=== PATIENT | female | born 1965 | race Two or more races ===

== ENCOUNTER → 2017-10-05 | Outpatient (CLI) | payer OTHER ==
[2017-10-05 15:25] LABS: URIC ACID 6.6 mg/dL (2.5-7.5)
[2017-10-05 15:27] LABS: C-REACTIVE PROTEIN < 5.0 mg/L (<10.0)
[2017-10-07 07:04] LABS: CYCLIC CITRUL PEPTIDE IGG/A AB 6 units (0-19)
== END ==
LOC: OD 13:48
PROVIDERS: ATTEND Orthopaedic Surgery
DX: M79.644 Pain in right finger(s) (principal); M79.645 Pain in left finger(s)
CPT/HCPCS: 36415; 84550; 85652; 86038; 86140; 86200; 86430

== ENCOUNTER → 2019-11-27 | Outpatient (CLI) | payer OTHER ==
[2019-11-27 13:05] LABS: ABSOLUTE EOSINOPHILS # (AUTO) 0.1 10^3/uL (0.0-0.6); ABSOLUTE LYMPHOCYTES (AUTO) 2.2 10^3/uL (0.5-4.7); ABSOLUTE MONOCYTES (AUTO) 0.4 10^3/uL (0.1-1.4); ABSOLUTE NEUT (AUTO) 1.7 10^3/uL (1.7-8.2); BASOPHILS % (AUTO) 0.9 % (0-2); EOSINOPHILS % (AUTO) 1.7 % (0-6); HEMATOCRIT 37.7 % (36.0-47.0); HEMOGLOBIN 12.5 g/dL (12.0-15.5); LYMPHOCYTES % (AUTO) 49.9 % (13-45); MEAN CORPUSCULAR HGB CONC 33.2 g/dL (32.0-36.0); MEAN CORPUSCULAR VOLUME 93 fl (80-97); MONOCYTES % (AUTO) 8.9 % (3-13); PLATELET COUNT 429 10^3/uL (150-450); RED BLOOD COUNT 4.05 10^6/uL (3.72-5.28); RED CELL DISTRIBUTION WIDTH 12.1 % (11.5-14.0); SEGMENTED NEUTROPHILS % (AUTO) 38.6 % (42-78); TOTAL CELLS COUNTED % (AUTO) 100 %; WHITE BLOOD COUNT 4.5 10^3/uL (4.0-10.5)
[2019-11-27 13:24] LABS: ALBUMIN 4.1 g/dL (3.5-5.0); ALKALINE PHOSPHATASE 94 U/L (38-126); ANION GAP 6 (5-19); ASPARTATE AMINO TRANSFERASE 26 U/L (14-36); BILIRUBIN,TOTAL 0.6 mg/dL (0.2-1.3); BLOOD UREA NITROGEN 17 mg/dL (7-20); CALCIUM 9.3 mg/dL (8.4-10.2); CARBON DIOXIDE 28 mmol/L (22-30); CHLORIDE 106 mmol/L (98-107); CREATINE KINASE 120 U/L (30-135); GLUCOSE 97 mg/dL (75-110); POTASSIUM 4.5 mmol/L (3.6-5.0); TOTAL PROTEIN 7.4 g/dL (6.3-8.2)
[2019-11-27 13:43] LABS: TROPONIN I < 0.012 ng/mL
--- NOTE | 2019-11-27 14:35 | RADIOLOGY REPORT (SQ) ---
EXAM DESCRIPTION: CHEST PA/LATERAL IMAGES COMPLETED DATE/TIME: 11/27/2019 1:42 pm REASON FOR STUDY: CHEST PAIN COMPARISON: 11/22/2011 EXAM PARAMETERS: NUMBER OF VIEWS: two views TECHNIQUE: Digital Frontal and Lateral radiographic views of the chest acquired. RADIATION DOSE: NA LIMITATIONS: none FINDINGS: LUNGS AND PLEURA: Right apical scarring which is stable. No evidence of pulmonary edema o r pneumonia. No pneumothorax. MEDIASTINUM AND HILAR STRUCTURES: No masses or contour abnormalities. HEART AND VASCULAR STRUCTURES: Heart normal size. No evidence for failure. BONES: No acute findings. HARDWARE: None in the chest. OTHER: No other significant finding. IMPRESSION: NO SIGNIFICANT RADIOGRAPHIC FINDING IN THE CHEST. TECHNICAL DOCUMENTATION: JOB ID: [id number] 2010 [employer]- All Rights Reserved Reading location - IP/workstation name: [email or web address]
== END ==
LOC: OD 11:52
PROVIDERS: ATTEND Physician Assistant
DX: R07.9 Chest pain, unspecified (principal)
CPT/HCPCS: 36415; 71046; 80053; 82550; 82553; 84484; 85025; 85379

== ENCOUNTER → 2019-11-28 | Outpatient (CLI) | payer OTHER | LOC: OD 09:43 | PROVIDERS: ATTEND Physician Assistant | DX: R07.9 Chest pain, unspecified (principal); R79.89 Other specified abnormal findings of blood chemistry ==

== ENCOUNTER → 2019-11-28 | Outpatient (CLI) | payer OTHER ==
--- NOTE | 2019-11-28 11:23 | RADIOLOGY REPORT (SQ) ---
EXAM DESCRIPTION: CTA CHEST IMAGES COMPLETED DATE/TIME: 11/28/2019 10:21 am REASON FOR STUDY: R07.9 CHEST PAIN, UNSPECIFIED, R79.89 R07.9 CHEST PAIN, UNSPECIFIED R79.89 OTHER SPECIFIED ABNORMAL FINDINGS OF BLOOD CHEMISTRY COMPARISON: Chest x-ray dated 11/27/2019 TECHNIQUE: CT scan of the chest performed using helical scanning technique with dynamic intravenous contrast injection. Images reviewed with lung, soft tissue and bone windows. Reconstructed coronal and sagittal MPR images reviewed. Additional 3 dimensional post-processing performed to develop Maximal Intensity Projection images (MS P). All images stored on PACS. All CT scanners at this facility use dose modulation, iterative reconstruction, and/or weight based d osing when appropriate to reduce radiation dose to as low as reasonably achievable (ALARA). [facility]: Dose Right [facility]: CareDose [facility]: Dose Right [facility]: Teradose 4D [facility]: Parkt CONTRAST TYPE AND DOSE: contrast/concentration: Isovue 350.00 mmol/ml; Total Contrast Delivered: 54. 0 ml; Total Saline Delivered: 70.0 ml Contrast bolus optimized for the pulmonary arteries. Not diagnostic for the aorta. RENAL FUNCTION: BUN 17, creatinine 0.62 RADIATION DOSE: CT Rad equipment meets quality standard of care and radiation dose reduction techniq ues were employed. CTDIvol: 10.0 - 15.0 mGy. DLP: 397 mGy-cm. . LIMITATIONS: None. FINDINGS: LUNGS AND PLEURA: There are bilateral lower lobe peripheral alveolar infiltrates. Most li kendall infectious or inflammatory. There is a focal slightly spiculated area in the right upper lobe a ssociated with calcification most likely scar. No effusions. AORTA AND GREAT VESSELS: No aneurysm. Contrast bolus not optimized for the aorta. HEART: No pericardial effusion. No significant coronary artery calcifications. PULMONARY ARTERIES: No emboli visualized in the main pulmonary arteries or the segmental branches. HILAR AND MEDIASTINAL STRUCTURES: Small right hilar nodes are present. These are nonspecific. Most likely reactive. HARDWARE: None in the chest. UPPER ABDOMEN: No significant findings. Limited exam. THYROID AND OTHER SOFT TISSUES: No masses. No adenopathy. BONES: No acute or significant finding. 3D MIPS: Confirm above findings. OTHER: No other significant finding. IMPRESSION: 1. No pulmonary emboli. 2. Commonly reported imaging features of COVID-19 pneumonia are present. Other processes such as i nfluenza pneumonia and organizing pneumonia, as can be seen with drug toxicity and connective tissue disease, can cause a similar imaging pattern. COMMENT: This report was called to TENNILLE YEE PA-C at11:16 on 11/28/2019. Quality ID # [id number]: Final reports with documentation of one or more dose reduction techniques (e.g., Au tomated exposure control, adjustment of the mA and/or kV according to patient size, use of iterative reconstruction technique) TECHNICAL DOCUMENTATION: JOB ID: [id number] 2010 [email or web address]- All Rights Reserved Reading location - IP/workstation name: [email or web address]PORTING [employer]-[facility]-
== END ==
LOC: RAD 09:58
PROVIDERS: ATTEND Physician Assistant
DX: R07.9 Chest pain, unspecified (principal); R79.89 Other specified abnormal findings of blood chemistry
CPT/HCPCS: 71275

== ENCOUNTER 2020-04-25 12:11 | Inpatient (IN) | payer OTHER ==
--- NOTE | 2020-04-25 13:35 | ER Document Report ---
ED Medical Screen (RME) - General Chief Complaint: Chest Pain Stated Complaint: CHEST PAIN Time Seen by Provider: 04/25/20 13:33 Primary Care Provider: TENNILLE YEE PA-C [Primary Care Provider] - Follow up as needed Notes: HPI: 54-year-old female presenting with intermittent midsternal chest pain with some radiation into the left shoulder over the last 2 days. Has shortness of breath with the chest discomfort also has discomfort with taking a deep breath then. Patient reports that she was Covid +2 months ago. Did not have chest discomfort like this at that time PHYSICAL EXAMINATION: Patient does not become dyspneic with speaking. Lung sounds are clear to auscultation. She is mildly tachycardic. EKG does show some repolarization abnormalities I have greeted and performed a rapid initial assessment of this patient. A comprehensive ED assessment and evaluation of the patient, analysis of test results and completion of medical decision making process will be conducted by an additional ED providers. Please note that clinical decision making for this patient was made during the 2019 pandemic of novel coronavirus which caused a significant strain on the healthcare system including at this particular facility. Criteria for admission discharge and level of care decisions as well as treatment decisions have necessarily changed TRAVEL OUTSIDE OF THE [place] IN LAST 30 DAYS: No - Related Data Allergies/Adverse Reactions: No Known Allergies Allergy (Verified 12/05/13 07:20) Past Medical History - Past Medical History Cardiac Medical History: Denies: Hx Coronary Artery Disease, Hx Heart Attack, Hx Hypertension Pulmonary Medical History: Denies: Hx Asthma, Hx Bronchitis, Hx COPD, Hx Pneumonia Neurological Medical History: Denies: Hx Cerebrovascular Accident, Hx Seizures GI Medical History: Reports: Hx Gastroesophageal Reflux Disease Musculoskeltal Medical History: Denies Hx Arthritis Past Surgical History: Denies: Hx Hysterectomy, Hx Pacemaker - Immunizations Hx Diphtheria, Pertussis, Tetanus Vaccination: Yes Physical Exam - Vital signs Vitals: Temp Pulse Resp BP Pulse Ox 98.3 F 88 16 140/53 H 100 04/25/20 12:04/25/20 12:04/25/20 12:04/25/20 12:04/25/20 12:21 Course - Vital Signs Vital signs: Temp Pulse Resp BP Pulse Ox 98.3 F 88 16 140/53 H 100 04/25/20 12:04/25/20 12:21 04/25/20 12:21 04/25/20 12:21 04/25/20 12:21 Doctor's Discharge - Discharge Referrals: TENNILLE YEE PA-C [Primary Care Provider] - Follow up as needed
--- NOTE | 2020-04-25 14:11 | RADIOLOGY REPORT (SQ) ---
EXAM DESCRIPTION: CHEST SINGLE VIEW IMAGES COMPLETED DATE/TIME: 04/25/2020 12:56 pm REASON FOR STUDY: chest pain sob COMPARISON: 11/27/2019 EXAM PARAMETERS: NUMBER OF VIEWS: One view. TECHNIQUE: Single frontal radiographic view of the chest acquired. RADIATION DOSE: NA LIMITATIONS: None. FINDINGS: LUNGS AND PLEURA: No opacities, masses or pneumothorax. No pleural effusion. MEDIASTINUM AND HILAR STRUCTURES: No masses. Contour normal. HEART AND VASCULAR STRUCTURES: Heart normal in size. Normal vasculature. BONES: No acute findings. HARDWARE: None in the chest. OTHER: No other significant finding. IMPRESSION: NO ACUTE RADIOGRAPHIC FINDING IN THE CHEST. TECHNICAL DOCUMENTATION: JOB ID: [id number] 2010 [employer]- All Rights Reserved Reading location - IP/workstation name: [id number]
[2020-04-25 14:19] LABS: ABSOLUTE BASOPHILS # (AUTO) 0.1 10^3/uL (0.0-0.2); ABSOLUTE EOSINOPHILS # (AUTO) 0.1 10^3/uL (0.0-0.6); ABSOLUTE LYMPHOCYTES (AUTO) 2.1 10^3/uL (0.5-4.7); ABSOLUTE MONOCYTES (AUTO) 0.4 10^3/uL (0.1-1.4); ABSOLUTE NEUT (AUTO) 3.4 10^3/uL (1.7-8.2); BASOPHILS % (AUTO) 1.1 % (0-2); EOSINOPHILS % (AUTO) 0.9 % (0-6); HEMATOCRIT 42.9 % (36.0-47.0); HEMOGLOBIN 14.4 g/dL (12.0-15.5); LYMPHOCYTES % (AUTO) 34.7 % (13-45); MEAN CORPUSCULAR HEMOGLOBIN 30.9 pg (27.0-33.4); MEAN CORPUSCULAR HGB CONC 33.6 g/dL (32.0-36.0); MEAN CORPUSCULAR VOLUME 92 fl (80-97); MONOCYTES % (AUTO) 6.1 % (3-13); PLATELET COUNT 306 10^3/uL (150-450); RED BLOOD COUNT 4.66 10^6/uL (3.72-5.28); RED CELL DISTRIBUTION WIDTH 12.5 % (11.5-14.0); SEGMENTED NEUTROPHILS % (AUTO) 57.2 % (42-78); TOTAL CELLS COUNTED % (AUTO) 100 %
[2020-04-25 14:32] LABS: ALBUMIN 4.7 g/dL (3.5-5.0); ALKALINE PHOSPHATASE 89 U/L (38-126); ASPARTATE AMINO TRANSFERASE 55 U/L (14-36); BILIRUBIN,DIRECT 0.1 mg/dL (0.0-0.4); BILIRUBIN,TOTAL 0.6 mg/dL (0.2-1.3); BLOOD UREA NITROGEN 15 mg/dL (7-20); CALCIUM 10.4 mg/dL (8.4-10.2); CARBON DIOXIDE 30 mmol/L (22-30); GLUCOSE 102 mg/dL (75-110); POTASSIUM 4.5 mmol/L (3.6-5.0); TOTAL PROTEIN 7.9 g/dL (6.3-8.2)
[2020-04-25 14:39] LABS: CHLORIDE 104 mmol/L (98-107)
[2020-04-25 14:42] LABS: ANION GAP 4 (5-19)
[2020-04-25 14:48] LABS: INTERNATIONAL RATION (INR) 0.88; PROTHROMBIN TIME 12.2 SEC (11.4-15.4)
[2020-04-25] MEDS ORDERED: ASPIRIN 325 MG TABLET PO ONE (15:06)
--- NOTE | 2020-04-25 15:11 | ER Document Report ---
ED Cardiac - General Chief Complaint: Chest Pain Stated Complaint: CHEST PAIN Time Seen by Provider: 04/25/20 13:33 Primary Care Provider: TENNILLE YEE PA-C [Primary Care Provider] - Follow up as needed Notes: HPI: 54-year-old female presents today stating 2 days of some intermittent substernal pain. Not exertional. No nausea, vomiting, fevers, or diaphoresis. No calf pain or leg swelling. Patient is not on any estrogen therapy. History only of cholesterol. Patient does not smoke. No family history of early heart attacks or strokes. Patient did have some chest discomfort around 2 months ago and was diagnosed with coronavirus. Patient currently has no pain at this time. ROS: See HPI All other review of systems reviewed and otherwise negative Reviewed vital signs and nursing note as charted by RN. PHYSICAL EXAM: CONSTITUTIONAL: Alert and oriented and responds appropriately to questions. Well-appearing; well-nourished HEAD: Normocephalic; atraumatic EYES: PERRL; Conjunctivae clear, sclerae non-icteric ENT: Normal nose; no rhinorrhea; moist mucous membranes; pharynx without lesions noted NECK: Supple without meningismus; non-tender; no cervical lymphadenopathy, no masses CARD: Regular rate and rhythm; no murmurs; symmetric distal pulses RESP: Normal chest excursion without splinting or tachypnea; breath sounds clear and equal bilaterally; no wheezes, no rhonchi, no rales ABD/GI: Normal bowel sounds; non-distended; soft, non-tender; no palpable organomegaly or masses BACK: The back appears normal and is non-tender to palpation EXT: Normal ROM in all joints; non-tender to palpation; no edema SKIN: No acute lesions noted NEURO: CN 2-12 intact; 5/5 bilateral upper and lower extremity strength with sensation intact to light touch PSYCH: The patient's mood and manner are appropriate. Grooming and personal hygiene are appropriate. TRAVEL OUTSIDE OF THE [place] IN LAST 30 DAYS: No - Related Data Allergies/Adverse Reactions: No Known Allergies Allergy (Verified 12/05/13 07:20) Past Medical History - Social History Smoking Status: Unknown if Ever Smoked Family History: Reviewed & Not Pertinent - Past Medical History Cardiac Medical History: Denies: Hx Coronary Artery Disease, Hx Heart Attack, Hx Hypertension Pulmonary Medical History: Denies: Hx Asthma, Hx Bronchitis, Hx COPD, Hx Pneumonia Neurological Medical History: Denies: Hx Cerebrovascular Accident, Hx Seizures GI Medical History: Reports: Hx Gastroesophageal Reflux Disease Musculoskeletal Medical History: Denies Hx Arthritis Past Surgical History: Denies: Hx Hysterectomy, Hx Pacemaker - Immunizations Hx Diphtheria, Pertussis, Tetanus Vaccination: Yes Physical Exam - Vital signs Vitals: Temp Pulse Resp BP Pulse Ox 98.3 F 88 16 140/53 H 100 04/25/20 12:21 04/25/20 12:21 04/25/20 12:21 04/25/20 12:04/25/20 12:21 Course - Re-evaluation Re-evalutation: Given the above history and physical examination we will obtain a cardiac panel, EKG, x-ray, and D-dimer. I do believe dissection to be extremely unlikely. EKG shows a heart of 100, sinus tachycardia, normal axis, right bundle branch block, very minimal ST depression in leads V3 and V4. Slightly depressed in lead II. No old EKG to compare. Patient is currently chest pain-free. 04/25/20 16:15 Labs as recorded. No chest pain currently. No right upper quadrant epigastric pain. X-ray of the chest unremarkable. D-dimer is negative Given the history of cholesterol, patient's age, some radiation to the shoulder, with a slightly abnormal EKG, patient's heart score is a 4. I have spoken to the primary care physician who admit the patient. Patient is currently still chest pain-free. - Vital Signs Vital signs: Temp Pulse Resp BP Pulse Ox 98.3 F 88 18 159/70 H 100 04/25/20 12:21 04/25/20 12:21 04/25/20 15:32 04/25/20 15:31 04/25/20 15:32 - Laboratory Results Result Diagrams: 04/25/20 13:48 04/25/20 13:48 Laboratory Results Interpreted: 04/25/20 13:48 Anion Gap 4 L Calcium 10.4 H AST 55 H ALT 70 H Critical Laboratory Results Reviewed: No Critical Results - Radiology Results Critical Radiology Results Reviewed: No Critical Results Discharge - Discharge Clinical Impression: Abnormal EKG Chest pain Qualifiers: Chest pain type: unspecified Qualified Code(s): R07.9 - Chest pain, unspecified Condition: Fair Disposition: ADMITTED OBSERVATION Admitting Provider: Bal Unit Admitted: Telemetry Referrals: TENNILLE YEE PA-C [Primary Care Provider] - Follow up as needed
[2020-04-25] MEDS ORDERED: ACETAMINOPHEN 325 MG TABLET PO PRN (18:45)
[2020-04-25 20:11] LABS: CREATINE KINASE MB 0.49 ng/mL (<4.55)
[2020-04-25 20:16] LABS: TROPONIN I < 0.012 ng/mL
[2020-04-25] MEDS ORDERED: ACETAMINOPHEN 325 MG TABLET ONE (20:24)
--- NOTE | 2020-04-25 20:32 | RADIOLOGY REPORT (SQ) ---
EXAM DESCRIPTION: Site: CTA CHEST RP: CT CHEST ANGIOGRAPHY WITH IV CONTRAST CLINICAL HISTORY: 54 years Female; chest pain; TECHNIQUE: CT angiogram of the chest using intravenous contrast. MIP reconstructions were performed. All CT scans at this facility use dose modulation, iterative reconstruction, and/or weight based dosing when appropriate to reduce radiation dose to as low as reasonably achievable. COMPARISON: None. FINDINGS: Pulmonary arteries: No filling defects in the central pulmonary arteries. Lungs: The scattered infiltrates seen on prior exam have resolved. There is some residual interstitial scarring in the right lung apex. No acute infiltrates. No pneumothorax or pleural effusion. Mediastinum:No mediastinal mass or adenopathy. Mediastinal vascular structures are unremarkable. Bones:No acute bone findings. IMPRESSION: 1. No CT evidence for pulmonary embolism. 2. No acute pulmonary findings. 3. Mild chronic interstitial fibrosis in the right upper lobe
[2020-04-25] MEDS: FAMOTIDINE 20 MG TABLET PO SCH (22:25)
--- NOTE | 2020-04-25 22:42 | EKG REPORT ---
SEVERITY:- BORDERLINE ECG - SINUS TACHYCARDIA PROBABLE LEFT ATRIAL ABNORMALITY BORDERLINE REPOL ABNORMALITY, DIFFUSE LEADS IRBBB : Confirmed by: Sharyn White 25-Apr-2020 22:41:10
[2020-04-26] MEDS ORDERED: MAG HYDROX/AL HYDROX/SIMETH SUSP 30 ML UDCUP PO PRN (01:31)
[2020-04-26 01:39] LABS: CREATINE KINASE MB 0.64 ng/mL (<4.55); TROPONIN I < 0.012 ng/mL
[2020-04-26 07:00] LABS: HEMATOCRIT 39.2 % (36.0-47.0); HEMOGLOBIN 13.4 g/dL (12.0-15.5); MEAN CORPUSCULAR HEMOGLOBIN 31.8 pg (27.0-33.4); MEAN CORPUSCULAR HGB CONC 34.3 g/dL (32.0-36.0); MEAN CORPUSCULAR VOLUME 93 fl (80-97); PLATELET COUNT 278 10^3/uL (150-450); RED BLOOD COUNT 4.22 10^6/uL (3.72-5.28); RED CELL DISTRIBUTION WIDTH 12.7 % (11.5-14.0); WHITE BLOOD COUNT 6.7 10^3/uL (4.0-10.5)
--- NOTE | 2020-04-26 07:37 | EKG REPORT ---
SEVERITY:- ABNORMAL ECG - SINUS RHYTHM NONSPECIFIC INTRAVENTRICULAR CONDUCTION DELAY LVH : Confirmed by: Sharyn White 26-Apr-2020 07:36:01
[2020-04-26 07:43] LABS: CREATINE KINASE MB 0.44 ng/mL (<4.55)
[2020-04-26 07:45] LABS: ANION GAP 7 (5-19); BLOOD UREA NITROGEN 15 mg/dL (7-20); CALCIUM 9.8 mg/dL (8.4-10.2); CARBON DIOXIDE 27 mmol/L (22-30); CHLORIDE 105 mmol/L (98-107); GLUCOSE 94 mg/dL (75-110); POTASSIUM 4.1 mmol/L (3.6-5.0)
[2020-04-26 07:48] LABS: TROPONIN I < 0.012 ng/mL
[2020-04-26] MEDS ORDERED: INFLUENZA QUAD (6MOS+) 2020-21 VAC 0.5 ML SYR IM ONE (08:00)
[2020-04-26] MEDS ORDERED: NITROGLYCERIN 0.4 MG/TAB 25 TAB/BOTTLE SL PRN (09:39)
[2020-04-26] MEDS ORDERED: ENOXAPARIN SODIUM INJ 40 MG/0.4 ML DISP.SYRIN SUBCUT SCH (10:00)
[2020-04-26] MEDS: FAMOTIDINE 20 MG TABLET PO SCH (11:28)
[2020-04-26 12:23] VITALS: BP 115/61
--- NOTE | 2020-04-26 14:03 | PDOC H&P ---
History of Present Illness Admission Date/PCP: 04/25/20 18:06 TENNILLE YEE PA-C Patient complains of: Chest pain History of Present Illness: WESLEY GIBBS is a 54 year old female Is a 54-year-old female with no other medical problems with a history of the latent tuberculosis in the [facility] basically have a Covid 2 months back Patient was treated with outpatientsAnd doing well Patient CT scan was done at the time pursuing the Covid pneumonia Patient's other than that no other complaints came today's because of the intermittent chest pain no shortness of breath and emergency department patient's chest x-ray blood work D-dimer all negative Repeat the CT angiogram no PE and Covid pneumonia is pretty much all resolved some Fibrosis Patient's cardiac enzymes EKG everything was negative Patient seen by the cardiology Dr. ENGLAND suggest follow outpatient Past Medical History Cardiac Medical History: Denies: Coronary Artery Disease, Myocardial Infarction, Hypertension Pulmonary Medical History: Denies: Asthma, Bronchitis, Chronic Obstructive Pulmonary Disease (COPD), Pneumonia Neurological Medical History: Denies: Seizures GI Medical History: Reports: Gastroesophageal Reflux Disease Musculoskeltal Medical History: Denies: Arthritis Psychiatric Medical History: Denies: Depression Hematology: Denies: Anemia Past Surgical History Past Surgical History: Denies: Hysterectomy, Pacemaker Social History Information Source: Patient Smoking Status: Never Smoker Electronic Cigarette use?: No Frequency of Alcohol Use: None Hx Recreational Drug Use: No Drugs: None Hx Prescription Drug Abuse: No Family History Family History: Reviewed & Not Pertinent Parental Family History Reviewed: Yes Children Family History Reviewed: Yes Sibling(s) Family History Reviewed.: Yes Medication/Allergy Home Medications: Omeprazole 40 mg PO DAILY #30 capsule. 04/26/20 Allergies/Adverse Reactions: No Known Allergies Allergy (Verified 12/05/13 07:20) Review of Systems Constitutional: ABSENT: chills, fever(s), headache(s), weight gain, weight loss Eyes: ABSENT: visual disturbances Ears: ABSENT: hearing changes Cardiovascular: PRESENT: dyspnea on exertion. ABSENT: chest pain, edema, orthropnea, palpitations Respiratory: ABSENT: cough, hemoptysis Gastrointestinal: ABSENT: abdominal pain, constipation, diarrhea, hematemesis, hematochezia, nausea, vomiting Genitourinary: ABSENT: dysuria, hematuria Musculoskeletal: ABSENT: joint swelling Integumentary: ABSENT: rash, wounds Neurological: ABSENT: abnormal gait, abnormal speech, confusion, dizziness, focal weakness, syncope Psychiatric: ABSENT: anxiety, depression, homidical ideation, suicidal ideation Endocrine: ABSENT: cold intolerance, heat intolerance, menstrual abnormalities, polydipsia, polyuria Hematologic/Lymphatic: ABSENT: easy bleeding, easy bruising, lymphadenopathy Physical Exam Vital Signs: Temp Pulse Resp BP Pulse Ox 97.9 F 63 18 115/61 98 04/26/20 12:11 04/26/20 12:11 04/26/20 12:11 04/26/20 12:11 04/26/20 12:11 Intake & Output 04/25/20 04/26/20 04/27/20 06:59 06:59 06:59 Intake Total 400 Output Total 700 Balance -300 Weight 71.8 kg General appearance: PRESENT: no acute distress, well-developed, well-nourished Head exam: PRESENT: atraumatic, normocephalic Eye exam: PRESENT: conjunctiva pink, EOMI, PERRLA. ABSENT: scleral icterus Ear exam: PRESENT: normal external ear exam Mouth exam: PRESENT: moist, tongue midline Neck exam: PRESENT: full ROM. ABSENT: carotid bruit, JVD, lymphadenopathy, thyromegaly Respiratory exam: PRESENT: clear to auscultation flori Cardiovascular exam: PRESENT: RRR. ABSENT: diastolic murmur, rubs, systolic murmur Pulses: PRESENT: normal dorsalis pedis pul, +2 pedal pulses bilateral Vascular exam: PRESENT: normal capillary refill GI/Abdominal exam: PRESENT: normal bowel sounds, soft. ABSENT: distended, guarding, mass, organolmegaly, rebound, tenderness Rectal exam: PRESENT: deferred Musculoskeletal exam: PRESENT: ambulatory Neurological exam: PRESENT: alert, awake, oriented to person, oriented to place, oriented to time, oriented to situation, CN II-XII grossly intact. ABSENT: motor sensory deficit Psychiatric exam: PRESENT: appropriate affect, normal mood. ABSENT: homicidal ideation, suicidal ideation Skin exam: PRESENT: dry, intact, warm. ABSENT: cyanosis, rash Results Laboratory Results: 04/26/20 06:41 04/26/20 06:41 04/25/20 04/25/20 04/26/20 13:48 13:48 06:41 WBC 6.0 6.7 RBC 4.66 4.22 Hgb 14.4 13.4 Hct 42.9 39.2 MCV 92 93 MCH 30.9 31.8 MCHC 33.6 34.3 RDW 12.5 12.7 Plt Count 306 278 Seg Neutrophils % 57.2 Sodium 138.4 Potassium 4.5 Chloride 104 Carbon Dioxide 30 Anion Gap 4 L BUN 15 Creatinine 0.61 Est GFR ( Amer) > 60 Glucose 102 Calcium 10.4 H Total Bilirubin 0.6 AST 55 H Alkaline Phosphatase 89 Total Protein 7.9 Albumin 4.7 04/26/20 06:41 WBC RBC Hgb Hct MCV MCH MCHC RDW Plt Count Seg Neutrophils % Sodium 138.7 Potassium 4.1 Chloride 105 Carbon Dioxide 27 Anion Gap 7 BUN 15 Creatinine 0.66 Est GFR ( Amer) > 60 Glucose 94 Calcium 9.8 Total Bilirubin AST Alkaline Phosphatase Total Protein Albumin 04/25/20 04/25/20 04/25/20 13:48 17:01 19:25 Creatine Kinase 85 CK-MB (CK-2) Troponin I < 0.012 < 0.012 04/25/20 04/26/20 04/26/20 19:25 00:43 00:43 Creatine Kinase 80 CK-MB (CK-2) 0.49 0.64 Troponin I < 0.012 < 0.012 04/26/20 04/26/20 06:41 06:41 Creatine Kinase 81 CK-MB (CK-2) 0.44 Troponin I < 0.012 Impressions: Chest/Abdomen CTA 04/25/20 00:00 IMPRESSION: 1. No CT evidence for pulmonary embolism. 2. No acute pulmonary findings. 3. Mild chronic interstitial fibrosis in the right upper lobe Chest X-Ray 04/25/20 13:34 IMPRESSION: NO ACUTE RADIOGRAPHIC FINDING IN THE CHEST. Assessment & Plan - Diagnosis (1) Chest pain Qualifiers: Chest pain type: unspecified Qualified Code(s): R07.9 - Chest pain, unspecified Is this a current diagnosis for this admission?: Yes Plan: Patient CT angiogram is negative for any acute finding except chronic changes patient EKG cardiac enzymes all negative seen by the industrial economist Dr. Tamara mckeongest follow outpatient stress test and echocardiogram most likely a GI symptoms will start on omeprazole (2) Gastro-esophageal reflux Qualifiers: Esophagitis presence: without esophagitis Qualified Code(s): K21.9 - Gastro-esophageal reflux disease without esophagitis Is this a current diagnosis for this admission?: Yes Plan: We will start the patient on omeprazole 40 mg p.o. daily (3) History of COVID-19 Is this a current diagnosis for this admission?: Yes Plan: Patient CT scan is all better patient's wants a Covid test we will do the Covid test but patient does not have any symptoms - Time Time Spent: 30 to 50 Minutes Medications reviewed and adjusted accordingly: Yes Anticipated Discharge Disposition: Home, Self Care Anticipated Discharge Timeframe: within 24 hours - Inpatient Certification Based on my medical assessment, after consideration of the patient's comorbidities, presenting symptoms, or acuity I expect that the services needed warrant INPATIENT care.: Yes I certify that my determination is in accordance with my understanding of Medicare's requirements for reasonable and necessary INPATIENT services [42 CFR 412.3e].: Yes Medical Necessity: Significant Comorbidiites Make Outpatient Treatment Too Risky, Need Close Monitoring Due to Risk of Patient Decompensation Post Hospital Care: D/C Household Appliance Installer Documentation - Plan Summary Plan Summary: Admit for 24-hour observations acute coronary syndromes
--- NOTE | 2020-04-26 14:05 | PDOC DISCHARGE SUMMARY ---
Impression - Admit/DC Date/PCP Admission Date/Primary Care Provider: 04/25/20 18:06 TENNILLE YEE PA-C Discharge Date: 04/26/20 - Discharge Diagnosis (1) Chest pain Is this a current diagnosis for this admission?: Yes (2) Gastro-esophageal reflux Is this a current diagnosis for this admission?: Yes (3) History of COVID-19 Is this a current diagnosis for this admission?: Yes - Additional Information Discharge Diet: Regular Discharge Activity: Activity As Tolerated Referrals: TENNILLE YEE PA-C [Primary Care Provider] - Follow up as needed (make appt with dr see ) Prescriptions: Omeprazole 40 mg PO DAILY #30 capsule. Home Medications: Omeprazole 40 mg PO DAILY #30 capsule. 04/26/20 History of Present Illiness History of Present Illness: WESLEY GIBBS is a 54 year old female Is a 54-year-old female with no other medical problems with a history of the latent tuberculosis in the [facility] basically have a Covid 2 months back Patient was treated with outpatientsAnd doing well Patient CT scan was done at the time pursuing the Covid pneumonia Patient's other than that no other complaints came today's because of the intermittent chest pain no shortness of breath and emergency department patient's chest x-ray blood work D-dimer all negative Repeat the CT angiogram no PE and Covid pneumonia is pretty much all resolved some Fibrosis Patient's cardiac enzymes EKG everything was negative Patient seen by the cardiology Dr. SEE suggest follow outpatient Hospital Course Hospital Course: Is a 55-year-old female admitted with chest pain with a history of this Covid couple of months back with the Covid pneumonia Patient's repeat CT scan is much better no acute changes patient's EKG cardiac enzymes all negative Patient seen by the cardiology Dr. Francois and suggest follow-up stress test and echocardiogram patient otherwise doing well the risk factor Patient otherwise doing well no chest pain no shortness of the breath patient is requesting the further Covid test Patient is at this point discharged home with a stable conditions start the patient on omeprazole 40 mg p.o. daily discussed with the patient 's patients and will follow Physical Exam Vital Signs: Temp Pulse Resp BP Pulse Ox 97.9 F 63 18 115/61 98 04/26/20 12:11 04/26/20 12:11 04/26/20 12:11 04/26/20 12:11 04/26/20 12:11 Intake & Output 04/25/20 04/26/20 04/27/20 06:59 06:59 06:59 Intake Total 400 Output Total 700 Balance -300 Weight 71.8 kg General appearance: PRESENT: no acute distress, well-developed, well-nourished Head exam: PRESENT: atraumatic, normocephalic Eye exam: PRESENT: conjunctiva pink, EOMI, PERRLA. ABSENT: scleral icterus Ear exam: PRESENT: normal external ear exam Mouth exam: PRESENT: moist, tongue midline Neck exam: ABSENT: carotid bruit, JVD, lymphadenopathy, thyromegaly Respiratory exam: PRESENT: clear to auscultation flori. ABSENT: rales, rhonchi, wheezes Cardiovascular exam: PRESENT: RRR. ABSENT: diastolic murmur, rubs, systolic murmur Pulses: PRESENT: normal dorsalis pedis pul Vascular exam: PRESENT: normal capillary refill GI/Abdominal exam: PRESENT: normal bowel sounds, soft. ABSENT: distended, guarding, mass, organolmegaly, rebound, tenderness Rectal exam: PRESENT: deferred Extremities exam: PRESENT: full ROM. ABSENT: calf tenderness, clubbing, pedal edema Neurological exam: PRESENT: alert, awake, oriented to person, oriented to place, oriented to time, oriented to situation, CN II-XII grossly intact. ABSENT: motor sensory deficit Psychiatric exam: PRESENT: appropriate affect, normal mood. ABSENT: homicidal ideation, suicidal ideation Skin exam: PRESENT: dry, intact, warm. ABSENT: cyanosis, rash Results Laboratory Results: WBC 6.7 10^3/uL (4.0-10.5) 04/26/20 06:41 RBC 4.22 10^6/uL (3.72-5.28) 04/26/20 06:41 Hgb 13.4 g/dL (12.0-15.5) 04/26/20 06:41 Hct 39.2 % (36.0-47.0) 04/26/20 06:41 MCV 93 fl (80-97) 04/26/20 06:41 MCH 31.8 pg (27.0-33.4) 04/26/20 06:41 MCHC 34.3 g/dL (32.0-36.0) 04/26/20 06:41 RDW 12.7 % (11.5-14.0) 04/26/20 06:41 Plt Count 278 10^3/uL (150-450) 04/26/20 06:41 Lymph % (Auto) 34.7 % (13-45) 04/25/20 13:48 [place] % (Auto) 6.1 % (3-13) 04/25/20 13:48 Eos % (Auto) 0.9 % (0-6) 04/25/20 13:48 Baso % (Auto) 1.1 % (0-2) 04/25/20 13:48 Absolute Neuts (auto) 3.4 10^3/uL (1.7-8.2) 04/25/20 13:48 Absolute Lymphs (auto) 2.1 10^3/uL (0.5-4.7) 04/25/20 13:48 Absolute Monos (auto) 0.4 10^3/uL (0.1-1.4) 04/25/20 13:48 Absolute Eos (auto) 0.1 10^3/uL (0.0-0.6) 04/25/20 13:48 Absolute Basos (auto) 0.1 10^3/uL (0.0-0.2) 04/25/20 13:48 Seg Neutrophils % 57.2 % (42-78) 04/25/20 13:48 PT 12.2 SEC (11.4-15.4) 04/25/20 13:48 INR 0.88 04/25/20 13:48 D-Dimer < 0.27 ug/mL (0.00-0.50) 04/25/20 13:48 Sodium 138.7 mmol/L (137-145) 04/26/20 06:41 Potassium 4.1 mmol/L (3.6-5.0) 04/26/20 06:41 Chloride 105 mmol/L (98-107) 04/26/20 06:41 Carbon Dioxide 27 mmol/L (22-30) 04/26/20 06:41 Anion Gap 7 (5-19) 04/26/20 06:41 BUN 15 mg/dL (7-20) 04/26/20 06:41 Creatinine 0.66 mg/dL (0.52-1.25) 04/26/20 06:41 Est GFR ( Amer) > 60 (>60) 04/26/20 06:41 Est GFR (MDRD) Non-Af > 60 (>60) 04/26/20 06:41 Glucose 94 mg/dL (75-110) 04/26/20 06:41 Calcium 9.8 mg/dL (8.4-10.2) 04/26/20 06:41 Total Bilirubin 0.6 mg/dL (0.2-1.3) 04/25/20 13:48 Direct Bilirubin 0.1 mg/dL (0.0-0.4) 04/25/20 13:48 Neonat Total Bilirubin Not Reportable 04/25/20 13:48 Neonat Direct Bilirubin Not Reportable 04/25/20 13:48 Neonat Indirect Bili Not Reportable 04/25/20 13:48 AST 55 U/L (14-36) H 04/25/20 13:48 ALT 70 U/L (<35) H 04/25/20 13:48 Alkaline Phosphatase 89 U/L (38-126) 04/25/20 13:48 Creatine Kinase 81 U/L (30-135) 04/26/20 06:41 CK-MB (CK-2) 0.44 ng/mL (<4.55) 04/26/20 06:41 Troponin I < 0.012 ng/mL 04/26/20 06:41 Total Protein 7.9 g/dL (6.3-8.2) 04/25/20 13:48 Albumin 4.7 g/dL (3.5-5.0) 04/25/20 13:48 COVID-19 Source See comment 04/26/20 11:38 04/25/20 04/25/20 04/25/20 13:48 17:01 19:25 CK-MB (CK-2) 0.49 Troponin I < 0.012 < 0.012 < 0.012 04/26/20 04/26/20 00:43 06:41 CK-MB (CK-2) 0.64 0.44 Troponin I < 0.012 < 0.012 Impressions: Chest/Abdomen CTA 04/25/20 00:00 IMPRESSION: 1. No CT evidence for pulmonary embolism. 2. No acute pulmonary findings. 3. Mild chronic interstitial fibrosis in the right upper lobe Chest X-Ray 04/25/20 13:34 IMPRESSION: NO ACUTE RADIOGRAPHIC FINDING IN THE CHEST. Plan Time Spent: Greater than 30 Minutes - Follow-up with Dr. See as outpatients follow-up office 2 weeks Stroke Is this a Stroke Patient?: No Acute Heart Failure Is this a Heart Failure Patient?: No
--- NOTE | 2020-04-26 18:41 | PDOC CONSULTATION ---
Consultation-Blank Consultation: CARDIOLOGY CONSULTATION by Dr. Wen Fisher on 04/26/2020. Patient seen at 8 AM. 60 minutes spent as patient more than 50% time spent in direct patient care. REASON FOR CONSULTATION: Intermittent chest pains. CONSULT REQUESTING PHYSICIAN: Dr. Bal. HISTORY OF PRESENT ILLNESS: Patient is a 54-year-old Iranian female with a history of GERD and history of Covid infection 2 months ago states since the past 2 to 3 days has been having chest tightness. It actually occurs at rest and when she walks it resolves. There is no wheezing. She has no history of asthma or COPD there is no history of cough. She does complain of GERD. And states that she has some acid reflux and is causing her sore throat. She denies any shortness of breath PND orthopnea or leg edema. The patient even though she had a Covid infection 2 months ago has not had any ill effects from that. The patient states that she feels like she the same symptoms she has when she had the Covid and wants to be retested. This has been discussed with Dr. Bal and the patient will have it done. The patient's EKG does show some changes which could be attributed to left ventricle hypertrophy with strain pattern. She has no clear-cut angina. Troponin I is serially negative x3. In spite of paucity of risk factors for CAD would recommend that the patient have an outpatient exercise Cardiolite stress test. Past Medical History Cardiac Medical History: Denies: Coronary Artery Disease, Myocardial Infarction, Hypertension Pulmonary Medical History: Denies: Asthma, Bronchitis, Chronic Obstructive Pulmonary Disease (COPD), Pneumonia. She has a history of latent tuberculosis treated in [facility]. Neurological Medical History: Denies: Seizures GI Medical History: Reports: Gastroesophageal Reflux Disease. No history of GI bleed. Musculoskeltal Medical History: Denies: Arthritis Psychiatric Medical History: Denies: Depression Hematology: Denies: Anemia ENDOCRINE: Denies history of diabetes mellitus or thyroid disease. MOTOR LODGE CLERK: Denies history of TIA CVA headaches migraines or seizures. Past Surgical History Past Surgical History: Denies: Hysterectomy, Pacemaker Social History Information Source: Patient Smoking Status: Never Smoker Electronic Cigarette use?: No Frequency of Alcohol Use: None Hx Recreational Drug Use: No Drugs: None Hx Prescription Drug Abuse: No Family History Family History: Reviewed & Not Pertinent. No history of coronary artery disease or hypertension. Parental Family History Reviewed: Yes Children Family History Reviewed: Yes Sibling(s) Family History Reviewed.: Yes RESUSCITATION STATUS: The patient is a full code. Her is her surrogate healthcare decision maker. Medication/Allergy Home Medications: Omeprazole 40 mg PO DAILY #30 capsule. 04/26/20 Allergies/Adverse Reactions: No Known Allergies Allergy (Verified 12/05/13 07:20) Current Medications Discontinued Medications Generic Name Dose Route Start Last Admin Trade Name Freq PRN Reason Stop Dose Admin Acetaminophen 650 mg 04/25/20 18:45 04/25/20 20:30 Acetaminophen 325 Mg Tablet PO 05/25/20 18:44 650 mg Q4HP PRN Administration FOR PAIN OR TEMP Acetaminophen Confirm 04/25/20 20:24 04/25/20 20:55 Acetaminophen 325 Mg Tablet Administered 04/25/20 20:25 Not Given Dose 325 mg .ROUTE .STK-MED ONE Al Hydrox/Mg Hydrox/Simethicone 30 ml 04/26/20 01:31 04/26/20 00:00 Mag Hydrox/Al Hydrox/Simeth Susp 30 Ml Udcup PO 05/26/20 01:30 30 ml Q6HP PRN Administration ACID REFLUX Aspirin 325 mg 04/25/20 15:06 04/25/20 15:22 Aspirin 325 Mg Tablet PO 04/25/20 15:07 325 mg NOW ONE Administration Enoxaparin Sodium 40 mg 04/26/20 10:00 04/26/20 11:28 Enoxaparin Sodium Inj 40 Mg/0.4 Ml Disp.Syrin SUBCUT 05/26/20 09:59 40 mg DAILY MORGAN Administration Famotidine 20 mg 04/25/20 22:00 04/26/20 11:28 Famotidine 20 Mg Tablet PO 05/25/20 21:59 20 mg Q12 MORGAN Administration Influenza Virus Vaccine Quadrival 0.5 ml 04/26/20 08:00 Influenza Quad (6mos+) Vac 0.5 Ml Syr IM 04/26/20 08:01 .ONCE ONE Nitroglycerin 1 tab 04/26/20 09:39 Nitroglycerin 0.4 Mg/Tab 25 Tab/Bottle SL 05/26/20 09:38 Q5MP PRN FOR CHEST PAIN Review of Systems Constitutional: ABSENT: chills, fever(s), headache(s), weight gain, weight loss Eyes: ABSENT: visual disturbances Ears: ABSENT: hearing changes Cardiovascular: PRESENT: dyspnea on exertion. ABSENT: chest pain, edema, orthropnea, palpitations Respiratory: ABSENT: cough, hemoptysis Gastrointestinal: ABSENT: abdominal pain, constipation, diarrhea, hematemesis, hematochezia, nausea, vomiting Genitourinary: ABSENT: dysuria, hematuria Musculoskeletal: ABSENT: joint swelling Integumentary: ABSENT: rash, wounds Neurological: ABSENT: abnormal gait, abnormal speech, confusion, dizziness, focal weakness, syncope Psychiatric: ABSENT: anxiety, depression, homidical ideation, suicidal ideation Endocrine: ABSENT: cold intolerance, heat intolerance, menstrual abnormalities, polydipsia, polyuria Hematologic/Lymphatic: ABSENT: easy bleeding, easy bruising, lymphadenopathy PHYSICAL EXAMINATION: The patient is well-built and well-nourished at present in no acute distress. At present she has no chest pain. Selected Entries 04/26/20 07:56 Temperature 97.4 F Temperature Oral Source Pulse Rate 59 L Respiratory 16 Rate Blood Pressure 106/63 Blood Pressure 77 Mean BP Location Left Arm BP Position Supine O2 Sat by Pulse 96 Oximetry Oxygen Delivery Room Air Method Labs- Entire Visit HEAD: Is atraumatic normocephalic. EYES: Pupils equal round regular reactive to light and accommodation. Extraocular movements are normal. There is no conjunctival pallor. There is no scleral icterus. EARS: Tympanic membranes are intact. External auditory canals are clear. NOSE: There is no deviated nasal septum. There is no inflammation in his mucous membrane. MOUTH: Mucous membranes of the mouth are moist. Tongue is moist. There is no ulcers. There is no bleeding from the gums. THROAT: There is no redness of the oropharynx. There is no exudates. SKIN: There is no skin lesions. There is no skin rashes. There is no petechia or ecchymosis. NECK: Is supple. There is no JVD. Carotids are equal there is no bruit. There is no lymphadenopathy. There is no goiter. LUNGS: Clear to auscultation percussion without any rhonchi rales or wheezing. There is no chest wall tenderness on palpation. HEART: S1-S2 is heard there is systolic murmur in the apex with radiation to the axilla suggestive of mitral regurgitation? Severity. There is no aortic stenosis or aortic regurgitation murmur. There is no S3 gallop there is no S4 gallop. There is no rub. ABDOMEN: Soft. Nontender. There is no hepatosplenomegaly. Bowel sounds are well heard. EXTREMITIES: Femorals are well felt. There is no femoral bruits. Leg pulses are well felt. There is no pedal edema. There is no DVT or cellulitis. There is no cyanosis or clubbing. MOTOR LODGE CLERK: The patient is conscious awake alert oriented x3 with no focal deficit. PSYCHIATRIC: The patient judgment insight are intact her affect is normal. EKG done yesterday shows sinus tachycardia probably mild ST segment depression diffusely secondary to rate related. The patient is EKG from today shows sinus rhythm probable LVH with strain pattern. 04/25/20 04/25/20 04/25/20 13:48 13:48 13:48 WBC 6.0 RBC 4.66 Hgb 14.4 Hct 42.9 MCV 92 MCH 30.9 MCHC 33.6 RDW 12.5 Plt Count 306 Lymph % (Auto) 34.7 [place] % (Auto) 6.1 Eos % (Auto) 0.9 Baso % (Auto) 1.1 Absolute Neuts (auto) 3.4 Absolute Lymphs (auto) 2.1 Absolute Monos (auto) 0.4 Absolute Eos (auto) 0.1 Absolute Basos (auto) 0.1 Seg Neutrophils % 57.2 PT INR D-Dimer Sodium 138.4 Potassium 4.5 Chloride 104 Carbon Dioxide 30 Anion Gap 4 L BUN 15 Creatinine 0.61 Est GFR ( Amer) > 60 Est GFR (MDRD) Non-Af > 60 Glucose 102 Calcium 10.4 H Total Bilirubin 0.6 Direct Bilirubin 0.1 Neonat Total Bilirubin Not Reportable Neonat Direct Bilirubin Not Reportable Neonat Indirect Bili Not Reportable AST 55 H ALT 70 H Alkaline Phosphatase 89 Creatine Kinase CK-MB (CK-2) Troponin I < 0.012 Total Protein 7.9 Albumin 4.7 COVID-19 Source 04/25/20 04/25/20 04/25/20 13:48 13:48 17:01 WBC RBC Hgb Hct MCV MCH MCHC RDW Plt Count Lymph % (Auto) [place] % (Auto) Eos % (Auto) Baso % (Auto) Absolute Neuts (auto) Absolute Lymphs (auto) Absolute Monos (auto) Absolute Eos (auto) Absolute Basos (auto) Seg Neutrophils % PT 12.2 INR 0.88 D-Dimer < 0.27 Sodium Potassium Chloride Carbon Dioxide Anion Gap BUN Creatinine Est GFR ( Amer) Est GFR (MDRD) Non-Af Glucose Calcium Total Bilirubin Direct Bilirubin Neonat Total Bilirubin Neonat Direct Bilirubin Neonat Indirect Bili AST ALT Alkaline Phosphatase Creatine Kinase CK-MB (CK-2) Troponin I < 0.012 Total Protein Albumin COVID-19 Source 04/25/20 04/25/20 04/26/20 19:25 19:25 00:43 WBC RBC Hgb Hct MCV MCH MCHC RDW Plt Count Lymph % (Auto) [place] % (Auto) Eos % (Auto) Baso % (Auto) Absolute Neuts (auto) Absolute Lymphs (auto) Absolute Monos (auto) Absolute Eos (auto) Absolute Basos (auto) Seg Neutrophils % PT INR D-Dimer Sodium Potassium Chloride Carbon Dioxide Anion Gap BUN Creatinine Est GFR ( Amer) Est GFR (MDRD) Non-Af Glucose Calcium Total Bilirubin Direct Bilirubin Neonat Total Bilirubin Neonat Direct Bilirubin Neonat Indirect Bili AST ALT Alkaline Phosphatase Creatine Kinase 85 80 CK-MB (CK-2) 0.49 Troponin I < 0.012 Total Protein Albumin COVID-19 Source 04/26/20 04/26/20 04/26/20 00:43 06:41 06:41 WBC 6.7 RBC 4.22 Hgb 13.4 Hct 39.2 MCV 93 MCH 31.8 MCHC 34.3 RDW 12.7 Plt Count 278 Lymph % (Auto) [place] % (Auto) Eos % (Auto) Baso % (Auto) Absolute Neuts (auto) Absolute Lymphs (auto) Absolute Monos (auto) Absolute Eos (auto) Absolute Basos (auto) Seg Neutrophils % PT INR D-Dimer Sodium 138.7 Potassium 4.1 Chloride 105 Carbon Dioxide 27 Anion Gap 7 BUN 15 Creatinine 0.66 Est GFR ( Amer) > 60 Est GFR (MDRD) Non-Af > 60 Glucose 94 Calcium 9.8 Total Bilirubin Direct Bilirubin Neonat Total Bilirubin Neonat Direct Bilirubin Neonat Indirect Bili AST ALT Alkaline Phosphatase Creatine Kinase CK-MB (CK-2) 0.64 Troponin I < 0.012 Total Protein Albumin COVID-19 Source 04/26/20 04/26/20 04/26/20 06:41 06:41 11:38 WBC RBC Hgb Hct MCV MCH MCHC RDW Plt Count Lymph % (Auto) [place] % (Auto) Eos % (Auto) Baso % (Auto) Absolute Neuts (auto) Absolute Lymphs (auto) Absolute Monos (auto) Absolute Eos (auto) Absolute Basos (auto) Seg Neutrophils % PT INR D-Dimer Sodium Potassium Chloride Carbon Dioxide Anion Gap BUN Creatinine Est GFR ( Amer) Est GFR (MDRD) Non-Af Glucose Calcium Total Bilirubin Direct Bilirubin Neonat Total Bilirubin Neonat Direct Bilirubin Neonat Indirect Bili AST ALT Alkaline Phosphatase Creatine Kinase 81 CK-MB (CK-2) 0.44 Troponin I < 0.012 Total Protein Albumin COVID-19 Source Results awaited See comment Chest/Abdomen CTA 04/25/20 00:00 IMPRESSION: 1. No CT evidence for pulmonary embolism. 2. No acute pulmonary findings. 3. Mild chronic interstitial fibrosis in the right upper lobe Chest X-Ray 04/25/20 13:34 IMPRESSION: NO ACUTE RADIOGRAPHIC FINDING IN THE CHEST. IMPRESSION/RECOMMENDATION: 1. Chest pain appears to be noncardiac but patient does have some EKG changes. Hence would recommend outpatient exercise treadmill Cardiolite stress test. Note that the patient's heart rate is 59 bpm hence will not tolerate meaningful doses of beta-mable. Also her blood pressure is on the low side. Hence would recommend that the patient be given sublingual nitroglycerin as needed for to use for chest pain. There is no evidence of ND by enzymes. 2. Systolic murmur: Most likely mitral regurgitation. Would recommend outpatient echocardiogram to assess for severity of the mitral regurgitation and also wall motion abnormality and LV ejection fraction. 3. GERD: Continue proton pump inhibitors. 4. History of Covid19 infection. Patient has been retested for it. She knows to stay in quarantine until the results of the tests are available. Medications reviewed. Medical regimen and management plan discussed with the attending physician on record which is Dr. Bal. Medical decision making is of high complexity. 60 minutes spent as patient more than 50% of time spent in direct patient care. We will schedule patient for outpatient follow-up in the office. The patient is given my cell phone number to call me if she has any problems.
== END 2020-04-26 15:37 | disposition home or self-care (01) | DRG 313 ==
LOC: ER 12:11 → EH 18:06 → OBSVTOIN 18:06 → 5 20:17
PROVIDERS: ADMIT Family Medicine; ATTEND Family Medicine
DX: R07.9 Chest pain, unspecified (principal); K21.9 Gastro-esophageal reflux disease without esophagitis; R94.31 Abnormal electrocardiogram [ECG] [EKG]; Z86.16 Personal history of COVID-19; Z86.15 Personal history of latent tuberculosis infection; Z87.01 Personal history of pneumonia (recurrent)
CPT/HCPCS: 36415; 71045; 71275; 80048; 80053; 82550; 82553; 84484; 85025; 85027; 85379; 85610; 87635; 93005; 93010; 99285; C9803; J1650